=== PATIENT | male | born 1985 | race Caucasian/White ===

== ENCOUNTER 2017-01-10 09:27 | Inpatient (IN) | payer MEDICAID, SELFPAY ==
[~2017-01-10 09:27] MED LIST: LEVEMIR FL100 UNIT/2 SC; LEVEMIR100 U/M SQ; NORCO 5/325 TAB1 TAB PO; NOVOLOG FL100 UNIT/2 SC; PEN-VEE K500 MG PO; VALTREX1000 M1 PO
[2017-01-10 10:16] LABS: ALB/GLOB RATIO 1.1 (0.8-2.0); ALBUMIN 4.4 g/dl (3.5-5.0); ALKALINE PHOSPHATASE 113 U/L (33-138); ALT/SGPT 29 U/L (12-78); BILIRUBIN,TOTAL 1.6 mg/dl (0.0-1.5); BLOOD UREA NITROGEN 20 mg/dl (6-24); CALCIUM 9.6 mg/dl (8.5-10.5); CHLORIDE 96 mmol/l (96-110); CREATININE 1.41 mg/dl (0.60-1.30); GLUCOSE 424 mg/dL (70-110); LIPASE 70 U/L (73-393); SODIUM 128 mmol/L (135-145); eGFR VALUE FOR BLACK 76 mL/Min
[2017-01-10 10:18] LABS: ANION GAP 28 mmol/L (0-20); AST/SGOT 29 U/L (10-40)
[2017-01-10 10:25] LABS: CARBON DIOXIDE-VENOUS 9 mmol/L (22-32)
[2017-01-10 11:41] LABS: URINE LEUKOCYTE ESTERASE NEGATIVE (NEG); URINE PROTEIN MODERATE (NEG)
[2017-01-10 11:43] LABS: URINE APPEARANCE CLEAR; URINE BILIRUBIN NEGATIVE (NEG); URINE BLOOD SMALL (NEG); URINE COLOR YELLOW; URINE GLUCOSE (UA) LARGE (NEG); URINE KETONE LARGE (NEG); URINE NITRITE NEGATIVE (NEG)
[2017-01-10 12:25] LABS: URINE EPITHELIAL CELLS 0-2 /[HPF] (0-10); URINE RBC 0-2 /[HPF] (0-5); URINE WBC 0-3 /[HPF] (0-5)
[2017-01-10 13:36] LABS: BASO % 0.6 % (0-2); BASO ABSOLUTE COUNT 0.1 tho/cmm (0.0-0.2); EOS % 3.2 % (0-7); EOSINOPHIL ABSOLUTE COUNT 0.3 tho/cmm (0.0-0.7); HGB-HEMOGLOBIN 15.8 gm/dl (13.5-17.0); IMMATURE GRANULOCYTES ABSOLUTE 0.11 tho/cmm (0-0.03); LYMPH % 24.5 % (20-45); LYMPH ABSOLUTE COUNT 2.6 tho/cmm (0.8-4.5); MCH (MEAN CORPUSCULAR HGB) 31.1 pg (28.0-32.0); MCHC MEAN CORPUSCULAR HGB CONC 35.1 % (32.0-36.0); MCV (MEAN CELL VOLUME) 88.6 fl (82.0-96.0); MEAN PLATELET VOLUME 9.8 cmc (9.4-12.4); MONO % 7.6 % (0-12); MONOCYTE ABSOLUTE COUNT 0.8 tho/cmm (0.0-1.2); NEUTROPHIL ABSOLUTE COUNT 6.7 tho/cmm (1.6-8.0); NEUTROPHIL-AUTOMATED 6.7 tho/cmm (1.6-8.0); NEUTROPHILS % 63.1 % (40-80); PLATELET COUNT 310 tho/cmm (150-450); RED BLOOD COUNT 5.08 mil/cmm (4.40-5.70); RED CELL DISTRIBUTION WIDTH 12.4 % (12.4-16.4); WHITE BLOOD COUNT 10.6 tho/cmm (4.0-10.0)
[2017-01-10 13:47] LABS: PHOSPHOROUS 2.8 mg/dl (2.5-4.9)
[2017-01-10 13:48] LABS: MAGNESIUM 2.2 mg/dl (1.3-2.6)
[2017-01-10 15:48] LABS: ANION GAP 20 mmol/L (0-20); BLOOD UREA NITROGEN 17 mg/dl (6-24); CALCIUM 7.9 mg/dl (8.5-10.5); CARBON DIOXIDE-VENOUS 14 mmol/L (22-32); CHLORIDE 105 mmol/l (96-110); GLUCOSE 229 mg/dL (70-110); MAGNESIUM 2.1 mg/dl (1.3-2.6); PHOSPHOROUS 2.7 mg/dl (2.5-4.9); POTASSIUM 5.1 mmol/L (3.7-5.1); SODIUM 134 mmol/L (135-145); eGFR VALUE FOR BLACK >90 mL/Min
[2017-01-10 20:07] LABS: ANION GAP 20 mmol/L (0-20); BLOOD UREA NITROGEN 15 mg/dl (6-24); CALCIUM 7.9 mg/dl (8.5-10.5); CARBON DIOXIDE-VENOUS 15 mmol/L (22-32); CHLORIDE 102 mmol/l (96-110); CREATININE 1.33 mg/dl (0.60-1.30); GLUCOSE 322 mg/dL (70-110); POTASSIUM 4.6 mmol/L (3.7-5.1); SODIUM 132 mmol/L (135-145); eGFR VALUE FOR BLACK 81 mL/Min
[2017-01-11 00:23] LABS: ANION GAP 13 mmol/L (0-20); BLOOD UREA NITROGEN 12 mg/dl (6-24); CALCIUM 9.1 mg/dl (8.5-10.5); CARBON DIOXIDE-VENOUS 21 mmol/L (22-32); CHLORIDE 106 mmol/l (96-110); CREATININE 1.24 mg/dl (0.60-1.30); GLUCOSE 245 mg/dL (70-110); POTASSIUM 4.4 mmol/L (3.7-5.1); SODIUM 136 mmol/L (135-145); eGFR VALUE FOR BLACK 89 mL/Min
[2017-01-11 04:44] LABS: ANION GAP 12 mmol/L (0-20); BLOOD UREA NITROGEN 11 mg/dl (6-24); CALCIUM 8.7 mg/dl (8.5-10.5); CARBON DIOXIDE-VENOUS 21 mmol/L (22-32); CHLORIDE 109 mmol/l (96-110); CREATININE 1.16 mg/dl (0.60-1.30); GLUCOSE 190 mg/dL (70-110); PHOSPHOROUS 1.8 mg/dl (2.5-4.9); SODIUM 138 mmol/L (135-145); eGFR VALUE FOR BLACK >90 mL/Min
[2017-01-11 08:18] LABS: ANION GAP 12 mmol/L (0-20); BLOOD UREA NITROGEN 10 mg/dl (6-24); CALCIUM 8.4 mg/dl (8.5-10.5); CARBON DIOXIDE-VENOUS 22 mmol/L (22-32); CHLORIDE 109 mmol/l (96-110); CREATININE 1.04 mg/dl (0.60-1.30); GLUCOSE 162 mg/dL (70-110); POTASSIUM 3.9 mmol/L (3.7-5.1); SODIUM 139 mmol/L (135-145); eGFR VALUE FOR BLACK >90 mL/Min
[2017-05-05] MEDS ORDERED: ASPIRIN EC81 MG PO (04:51)
[2017-05-05] MEDS ORDERED: MEN'S MULTI-VI1 EACH PO (04:51)
[2017-05-05] MEDS ORDERED: PRINIVIL10 M1 PO (04:51)
[2017-05-05] MEDS ORDERED: ZOFRAN ODT4 MG PO (05:31)
[2017-05-06] MEDS ORDERED: NOVOLOG FL100 UNIT/2 SC (10:34)
[2017-05-06] MEDS ORDERED: ZOFRAN ODT4 MG SL (10:38)
[2017-05-06] MEDS ORDERED: TUMS200 MG CH (11:46)
[2017-05-07] MEDS ORDERED: TYLENOL325 M2 PO (10:16)
== END 2017-01-11 14:00 | DRG 638 ==
LOC: EDMED 09:27 → EMR2 13:26 → PCUA 14:25
PROVIDERS: Emergency Medicine; ADMIT Hospitalist
DX: E10.10 Type 1 diabetes mellitus with ketoacidosis without coma (principal); E87.1 Hypo-osmolality and hyponatremia; N17.9 Acute kidney failure, unspecified; Z72.0 Tobacco use
CPT/HCPCS: J1650; J1815; J2405; J3475; J3480; J7030